=== PATIENT | female | born 1990 | race Caucasian/White ===

== ENCOUNTER 2017-10-08 10:16 | Observation (INO) ==
[2017-10-08] MEDS ORDERED: HYDROmorphone PF Inj 2 MG/ML Vial IV.PUSH ONE (12:02)
--- NOTE | 2017-10-08 12:06 | ED ---
HPI - - General Source: patient, family Mode of arrival: ambulatory Limitations: no limitations - History of Present Illness complaint: abdominal pain Onset (ago): hour(s) (4) Pain Consistency: constant, colicky Location: flank (left) Severity: severe Severity scale (1-10): 8 - General Chief complaint: OB/Uterine Contractions Stated complaint: Cramping pain left side 27 Wks Time seen by provider: 10/08/17 11:50 - History of Present Illness HPI narrative: Pt is a 26 yo at 27 weeks and 2 days. EDC 01/05/[address] Castillo. Pt deies any prior complication this . Pt states she woke up around 7:30 this morning with constant pain left back radiating to same flank. Pain is constant with intermittent exacerbations. She rates pain as 8/10. She denies any fevers. She has nausea and vomiting. She denies any dysuria. (Adam Reece) - Related Data Home Medications Medication Instructions Recorded Confirmed prenat.vits,drew,[id number] 1 tab PO DAILY 10/08/17 10/08/17 [ Vitamin] Allergies Allergy/AdvReac Type Severity Reaction Status Date / Time vancomycin Allergy Mild Itching Verified 10/08/17 10:45 Review of Systems All other systems reviewed negative except as stated in HPI PMFSH - - Past Medical History Medical history: Reports: other (obesity) Surgical history: Reports: appendectomy, cholecystectomy - Social History Smoking Status: Never smoker Physical Exam - General Limitations: no limitations General appearance: obese - Cardiovascular Cardiovascular exam: Present: regular rate, normal rhythm - Abdominal Exam Abdominal exam: Present: soft, other (left CVA tenderness ) - External exam: Present: normal external exam Bimanual exam: Present: other (cervix closed, long, posterior) - Back Exam Back exam: Present: CVA tenderness (L) Course Initial Documented Vital Signs Temperature 97.6 F 10/08/17 10:41 Respiratory Rate 10/08/17 10:41 Last Documented Vital Signs Temperature 97.6 F 10/08/17 10:41 Pulse Rate 80 10/08/17 10:53 Respiratory Rate 10/08/17 10:41 Blood Pressure 137/80 10/08/17 10:53 MDM - OB/Uterine Contractions
--- NOTE | 2017-10-08 12:49 | ED ---
History of Present Illness Primary Care Physician: KRAIG Chief Complaint: left back/flank pain./ 27 weeks . History of Present Illness: Patient is a 26 yo at 27 weeks and 2 days. care previously uncomplicated with Dr Castillo. EDC is 01/05/2018. Pt reports waking up this morning around 7:30 with pain. Pain constant, sharp over left back, with intermittent exacerbations. Denies any dysuria. No fevers or chills. She has had nausea and vomiting since onset. No vaginal bleeding or discharge. No prior h/o nephrolithiasis or pyelonephritis. Weeks Gestation:: 27 Para: 0 : 1 Review of Systems All other systems reviewed negative except as stated in HPI PMFSH - History History Provided By: Patient - Medical / Surgical Hx Neg / Unobtainable Medical Problems Denied: Yes - Tobacco History Smoking Status: Never smoker - Travel History Recent Travel in the [facility] Within the Last 8 Weeks: No Recent Travel Out of the Country Within the Last 8 Weeks: No Medications and Allergies Active Medications: Active Medications Lactated Ringer's (Lr 1000 Ml Inj) 1,000 mls @ 125 mls/hr IV.CONT .Q8H JENN Last Admin: 10/08/17 12:34 Dose: 125 mls/hr Sodium Chloride (Ns Flush) 2 ml IV.FLUSH BID JENN Sodium Chloride (Ns Flush) 2 ml IV.FLUSH PRN PRN PRN Reason: FLUSH AFTER USING IV ACCESS Allergies Allergy/AdvReac Type Severity Reaction Status Date / Time vancomycin Allergy Mild Itching Verified 10/08/17 10:45 Home Medications Medication Instructions Recorded Confirmed Type prenat.vits,drew,aqa-hbcq-seaeo 1 tab PO DAILY 10/08/17 10/08/17 History [ Vitamin] Exam Vital signs: Vital Signs 10/08/17 10:41 10/08/17 10:53 Temperature 97.6 F Pulse Rate 80 Respiratory Rate 18 Blood Pressure 137/80 Intake & Output 10/07/17 10/08/17 10/08/17 18:59 06:59 18:59 Weight 133.81 kg - Constitutional no acute distress - Routine HEENT Exam Head: Present: normocephalic - Routine Neck Exam Present: supple - Routine Respiratory Exam Present: CTA bilaterally - Routine Cardiovascular Exam Present: RRR - Routine Abdominal Exam Present: soft (gravid) - Routine Exam Patient deferred: perineal exam (cervix closed, long, posterior, no tenderness.) - Routine Extremities Exam Present: full ROM - Routine Back/Spine/Pelvis Exam Back/Spine: Present: CVA tenderness (LEFT) Results - Labs CBC & Chem 7: 10/08/17 12:32 09 12:32 Assessment and Plan - Diagnosis (1) 27 weeks gestation of Code(s): Z3A.27 - 27 weeks gestation of Status: Acute (2) CVA tenderness Code(s): M54.9 - Dorsalgia, unspecified Status: Acute Plan: Pt has left sided flank pain, pain is colicky Positive CVA tenderness, microscopic hematuria WCC is 13,000, no fevers. Suspicious for NEPHROLITHIASIS. Dilaudid 0.5mg ordered We will obtain renal ultrasound. Ultrasound does not show any hydronephrosis. However patient's symptoms are unchanged despite IV Dilaudid and IVF. I have discussed case with Dr Wong who agrees with plan to admit for pain medication and IVF. - Plan Admit for observation Dr hattie Castillo, Dr Ina Wong covering. Discharge Plan - Discharge Disposition Patient Disposition: 30 Still Patient - Discharge Condition Condition: Fair - Discharge Details Diagnosis: Nephrolithiasis, 27 weeks gestation of , Costovertebral angle tenderness - Physicians Team ED Provider: Adam Reece Primary Care Provider: David Poole V - Rxs /Orders / Referrals /Forms Prescriptions: No Action prenat.vits,drew,[id number] [ Vitamin] Tablet 1 tab PO DAILY - Discharge Instructions Print Language: Martiniquais
[2017-10-08 12:55] LABS: Hematocrit 35.6 % (35.0-46.0); Hemoglobin 11.8 gm/dL (11.6-15.3); Mean Corpuscular HGB Conc 33.2 % (32.0-36.0); Mean Corpuscular Hemoglobin 26.7 pg (27.0-34.0); Mean Corpuscular Volume 80.4 fL (80.0-100.0); Mean Platelet Volume 7.3 fL (7.0-11.0); Platelet Count 251 th/mm3 (150-450); Red Blood Count 4.43 mil/mm3 (4.00-5.30); Red Cell Distribution Width 15.5 % (11.6-17.2); White Blood Count 13.6 th/mm3 (4.0-11.0)
[2017-10-08 13:11] LABS: Bilirubin,Urine Negative (Negative); Clarity,Urine Hazy (Clear); Color,Urine Yellow (Yellw/Straw); Glucose,Urine (UA) Negative (Negative); Leukocyte Esterase,Urine Negative (Negative); Mucus,Urine Few /lpf (Occasional); Nitrite,Urine Negative (Negative); Specific Gravity,Urine 1.018 (1.002-1.035); Squamous Epithelial Cell,Urine 5 /hpf (0-5)
[2017-10-08 13:35] LABS: Anion Gap 11 meq/L (5-15); Blood Urea Nitrogen 5 mg/dL (7-18); Calcium 8.6 mg/dL (8.5-10.1); Carbon Dioxide 21.3 meq/L (21.0-32.0); Chloride 108 meq/L (98-107); Glomerular Filtration Rate Greater Than 89 mL/min (>89); Glucose,Random 96 mg/dL (74-106); Potassium 4.2 meq/L (3.5-5.1); Sodium 140 meq/L (136-145)
[2017-10-08] MEDS ORDERED: HYDROmorphone PF Inj 0.5 MG/0.5 ML Syringe IV.PUSH ONE (14:00)
--- NOTE | 2017-10-08 14:19 | US ---
EXAM DATE: 10/08/2017 2:14 PM EDT AGE/SEX: 26 years / Female INDICATIONS: Left flank pain. Hematuria. CLINICAL DATA: This is the patient's initial encounter. Patient reports that signs and symptoms have been present for 1 day and indicates a pain score of 10/10. MEDICAL/SURGICAL HISTORY: . Patient is 27 weeks . None. COMPARISON: [facility], CT ABDOMEN & PELVIS W CONTRAST, 09/23/2014. . MEASUREMENTS: Right Kidney:__11.2 x 5.7 x 4.7 cm Left Kidney:__12.6 x 5.6 x 6.9 cm FINDINGS: Right Kidney: Normal echotexture and cortical thickness. No mass or hydronephrosis. Left Kidney: Normal echotexture and cortical thickness. No mass or hydronephrosis. Bladder: Decompressed. Not well evaluated. Other: None. CONCLUSION: 1. Kidneys are normal. 2. Bladder not visualized. Electronically signed by: Ciro Isaacs MD 10/08/2017 2:17 PM EDT
[2017-10-08] MEDS ORDERED: Acetaminophen 325 MG Tablet PO PRN (14:21)
[2017-10-08] MEDS ORDERED: HYDROmorphone PF Inj 2 MG/ML Vial IV.PUSH PRN (14:50)
[2017-10-08] MEDS ORDERED: Morphine Inj 4 MG/ML Vial IV.SIG ONE (16:07)
[2017-10-08] MEDS ORDERED: Naloxone Inj 0.4 MG/ML Vial IV.PUSH PRN (16:07)
[2017-10-08] MEDS: Morphine Inj 30 MG/30 ML PCA.VIAL PCA PRN ×2 (16:55→22:00)
[2017-10-09] MEDS ORDERED: Morphine Inj 30 MG/30 ML PCA.VIAL PCA PRN (04:00)
[2017-10-09 06:42] LABS: Baso % (Auto) 0.2 % (0.0-2.0); Eos # (Auto) 0.1 th/mm3 (0.0-0.4); Hematocrit 31.4 % (35.0-46.0); Hemoglobin 10.5 gm/dL (11.6-15.3); Lymph # (Auto) 2.1 th/mm3 (1.0-4.8); Lymph % (Auto) 17.8 % (9.0-44.0); Mean Corpuscular HGB Conc 33.3 % (32.0-36.0); Mean Corpuscular Hemoglobin 26.8 pg (27.0-34.0); Mean Corpuscular Volume 80.4 fL (80.0-100.0); Mono % (Auto) 8.3 % (0.0-8.0); Neut # (Auto) 8.5 th/mm3 (1.8-7.7); Neut % (Auto) 72.7 % (16.0-70.0); Platelet Count 229 th/mm3 (150-450); Red Blood Count 3.91 mil/mm3 (4.00-5.30); White Blood Count 11.7 th/mm3 (4.0-11.0)
[2017-10-09 07:03] LABS: Albumin 2.3 g/dL (3.4-5.0); Anion Gap 10 meq/L (5-15); Aspartate Aminotransferase 13 U/L (15-37); Blood Urea Nitrogen 4 mg/dL (7-18); Calcium 8.1 mg/dL (8.5-10.1); Carbon Dioxide 25.4 meq/L (21.0-32.0); Chloride 109 meq/L (98-107); Glomerular Filtration Rate Greater Than 89 mL/min (>89); Glucose,Random 79 mg/dL (74-106); Potassium 3.8 meq/L (3.5-5.1); Sodium 144 meq/L (136-145)
[2017-10-09 07:06] LABS: Alanine Aminotransferase 32 U/L (10-53); Alkaline Phosphatase 97 U/L (45-117); Total Protein 6.2 g/dL (6.4-8.2)
[2017-10-09] MEDS ORDERED: Prenatal Vit/Ca/Iron/Folic Acid Tablet PO SCH (09:00)
--- NOTE | 2017-10-09 10:18 | P.OBANTE ---
Subjective Interval History: yesterday am pt with severe left flank pain. Since starting weights and measures inspector, she has been more comfortable. Able to sleep overnight. Has not used weights and measures inspector, just basal rate, dropped from 2 to 1 at 4am. Flank pain has resolved, now has llq pain that is mild. Sh edid note something in the strainer, rystals vs mucous, will send for eval Objective Vital Signs and I&O: Vital Signs 10/08/17 10:41 10/08/17 10:53 10/08/17 15:00 Temperature 97.6 F 98.5 F Pulse Rate 80 Respiratory Rate 18 Blood Pressure 137/80 10/08/17 17:13 10/08/17 17:20 10/08/17 17:35 Temperature Pulse Rate 76 82 Respiratory Rate 20 Blood Pressure 137/62 121/67 10/08/17 18:10 10/08/17 18:15 10/08/17 18:40 Temperature Pulse Rate 89 Respiratory Rate 20 20 Blood Pressure 124/66 10/08/17 19:25 10/08/17 22:05 10/08/17 23:36 Temperature Pulse Rate 74 70 Respiratory Rate 18 Blood Pressure 106/51 L 93/32 L 10/09/17 00:01 10/09/17 04:00 10/09/17 06:01 Temperature 97.9 F Pulse Rate 66 63 71 Respiratory Rate 18 Blood Pressure 102/54 L 111/51 L 104/43 L 10/09/17 07:00 10/09/17 07:45 10/09/17 07:55 Temperature 97.7 F Pulse Rate 71 68 Respiratory Rate 17 Blood Pressure 10/09/17 08:15 10/09/17 08:25 10/09/17 08:30 Temperature Pulse Rate 67 70 66 Respiratory Rate Blood Pressure 100/47 L 10/09/17 08:33 10/09/17 08:35 10/09/17 08:40 Temperature Pulse Rate 69 69 Respiratory Rate 18 Blood Pressure 10/09/17 08:45 10/09/17 09:00 10/09/17 09:10 Temperature Pulse Rate 67 84 84 Respiratory Rate Blood Pressure Intake & Output 10/08/17 10/09/17 10/09/17 18:59 06:59 18:59 Intake Total 1000 / 1000 Balance 1000 / 1000 Weight 133.81 kg Intake: IV 1000 / 1000 LR 1000 mL Inj 1,000 ML @ 125 1000 / 1000 mls/hr IV.CONT .Q8H [facility] Rx#: [id number] Lab and Micro Results: Laboratory Results - last 24 hr 10/08/17 10/08/17 10/08/17 10:54 12:32 12:32 WBC 13.6 H RBC 4.43 Hgb 11.8 Hct 35.6 MCV 80.4 MCH 26.7 L MCHC 33.2 RDW 15.5 Plt Count 251 MPV 7.3 Neut % (Auto) Lymph % (Auto) Bay % (Auto) Eos % (Auto) Baso % (Auto) Neut # (Auto) Lymph # (Auto) Bay # (Auto) Eos # (Auto) Baso # (Auto) WBC Differential Differential Comment Sodium 140 Potassium 4.2 Chloride 108 H Carbon Dioxide 21.3 Anion Gap 11 BUN 5 L Creatinine 0.54 Estimated GFR Greater than 89 Random Glucose 96 Calcium 8.6 Total Bilirubin AST ALT Alkaline Phosphatase Total Protein Albumin Urine Color Yellow Urine Clarity Hazy H Urine pH 6.0 Ur Specific [place] 1.018 Urine Protein 30 H Urine Glucose (UA) Negative Urine Ketones 20 Urine Occult Blood Large H Urine Nitrate Negative Urine Bilirubin Negative Urine Urobilinogen Less than 2 Ur Leukocyte Esterase Negative Urine RBC Urine WBC 1 Ur Squamous Epith Cells 5 Urine Mucus Few H Micro UA Comment Culture not ind Ur Microscopic Review Not Reportable Urine Culture Comments Culture not ind 10/09/17 10/09/17 06:25 06:25 WBC 11.7 H RBC 3.91 L Hgb 10.5 L Hct 31.4 L MCV 80.4 MCH 26.8 L MCHC 33.3 RDW 16.0 Plt Count 229 MPV 7.0 Neut % (Auto) 72.7 H Lymph % (Auto) 17.8 Bay % (Auto) 8.3 H Eos % (Auto) 1.0 Baso % (Auto) 0.2 Neut # (Auto) 8.5 H Lymph # (Auto) 2.1 Bay # (Auto) 1.0 H Eos # (Auto) 0.1 Baso # (Auto) 0.0 WBC Differential . Differential Comment Auto diff final Sodium 144 Potassium 3.8 Chloride 109 H Carbon Dioxide 25.4 Anion Gap 10 BUN 4 L Creatinine 0.52 Estimated GFR Greater than 89 Random Glucose 79 Calcium 8.1 L Total Bilirubin 0.3 AST 13 L ALT 32 Alkaline Phosphatase 97 Total Protein 6.2 L Albumin 2.3 L Urine Color Urine Clarity Urine pH Ur Specific [place] Urine Protein Urine Glucose (UA) Urine Ketones Urine Occult Blood Urine Nitrate Urine Bilirubin Urine Urobilinogen Ur Leukocyte Esterase Urine RBC Urine WBC Ur Squamous Epith Cells Urine Mucus Micro UA Comment Ur Microscopic Review Urine Culture Comments Physical Exam: GENERAL: Well-nourished, well-developed patient. CARDIOVASCULAR: Regular rate and rhythm without murmurs, gallops, or rubs. RESPIRATORY: Breath sounds equal bilaterally. No accessory muscle use. ABDOMEN/GI: Abdomen soft, non-tender. Fundus: [-] GENITOURINARY: External Genitalia:defer FHT's: Category: [140] Cat I EXTREMITIES: No cyanosis or edema, non-tender, without signs of DVT. Assessment and Plan - Plan 26 yo G1 with iup at 27 w3 d admitted for pyelonephritis No hydronephrosis or stone visualized on u/a. WBC count trending down. She has had one dose of Rocephin. UA with rbc, no culture indicated. Will stop weights and measures inspector basal rate and have patient just use weights and measures inspector as needed. Will stop weights and measures inspector this afternoon and transition to po percocet. Discharge Planning: this afternoon if pain controlled
[2017-10-09 15:18] VITALS: TEMP 97.8
[2017-10-09 16:04] VITALS: BP 130/54; PULSE 89; RESP 17
== END 2017-10-09 16:11 | disposition home or self-care (01) ==
LOC: HOBED 10:16 → H2E 10:16 → HOBED 14:45
PROVIDERS: ADMIT Obstetrics & Gynecology; ATTEND Obstetrics & Gynecology
DX: Z88.1 Allergy status to other antibiotic agents; O23.03 Infections of kidney in pregnancy, third trimester; N20.0 Calculus of kidney; O99.213 Obesity complicating pregnancy, third trimester; Z3A.27 27 weeks gestation of pregnancy; Z90.49 Acquired absence of other specified parts of digestive tract; Z68.42 Body mass index [BMI] 45.0-49.9, adult; O26.833 Pregnancy related renal disease, third trimester

== ENCOUNTER 2018-01-09 05:29 | Inpatient (IN) ==
--- NOTE | 2018-01-06 15:09 | MH ---
cc: Parish Castillo MD DATE OF ADMISSION: 01/09/2018 CHIEF COMPLAINT: The patient is being admitted for elective primary section. PATIENT'S HISTORY: The patient is a 27-year-old female, 1, para 0, estimated date of confinement 01/05/2018 based on first trimester assessment and ultrasound. The patient has been followed during this , developed gestational diabetes that is controlled with oral hypoglycemic agent using Metformin 500 mg daily. Assessment at the end of her third trimester; suspected macrosomia, transverse lie. In discussing options with the patient, she elected for primary section. OBSTETRICAL HISTORY: As stated above, the patient's group B strep status is negative. Blood type is A positive. Serologies are normal. Gonorrhea and chlamydia are negative. Hepatitis negative. RPR negative. The patient declined any genetic testing. The patient's is notable for morbid obesity, although she is able to maintain her weight just below 300 pounds. Initial weight was 298. Weight today was 298. The patient's recent blood sugars were normal; fastings are below 102, two hours were below 120-110. PAST MEDICAL HISTORY: The patient denies any systemic or chronic disease. ALLERGIES: THE PATIENT HAS NO KNOWN DRUG ALLERGIES. PAST SURGICAL HISTORY: Includes history of appendectomy and cholecystectomy, uncomplicated. PATIENT'S MEDICATIONS: Include: 1. Metformin 500 mg at bedtime. 2. vitamins daily. SOCIAL HISTORY: The patient denies use of alcohol, tobacco or illicit substances. She is . 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 FAMILY HISTORY: Noncontributory. PHYSICAL EXAMINATION: GENERAL: The patient is a morbidly obese female in no acute distress. VITAL SIGNS: Stable. Blood pressure 126/78, pulse, and respiratory rate are normal. heart tones in the 140s. HEENT: Shows no adenopathy or thyromegaly. NECK: Supple, full range of motion. LUNGS: Clear in all [place]. CARDIAC: Regular rate and rhythm without murmur, rub or gallop. ABDOMEN: Gravid, obese. Fundal height is over 42 cm; transverse lie appreciated on Stan's maneuver. Cervix is long, closed, posterior with no presenting part in the pelvis. EXTREMITIES: Symmetrical, full range of motion. She has 1+ pedal edema of the lower extremities and deep tendon reflexes are normal. No calf tenderness. NEUROLOGIC: Grossly intact, nonfocal. ASSESSMENT AND PLAN: The patient is 40 weeks and 1 day based on good dating criteria, history of morbid obesity, history of gestational diabetes controlled with metformin, history of macrosomia with malposition and transverse lie. PLAN OF MANAGEMENT: Patient is scheduled for elective primary section. The patient will stop her metformin. Glucose assessment will be made on the admission to labor and delivery by Accu-Cheks. The patient's group B strep status, again, is negative. Parish Castillo MD SJZhao/viola , 02:50 PM , 02:59 PM
[2018-01-09 06:13] LABS: Baso # (Auto) 0.1 th/mm3 (0.0-0.2); Baso % (Auto) 0.5 % (0.0-2.0); Eos # (Auto) 0.1 th/mm3 (0.0-0.4); Eos % (Auto) 0.7 % (0.0-4.0); Hematocrit 38.2 % (35.0-46.0); Hemoglobin 12.9 gm/dL (11.6-15.3); Lymph # (Auto) 1.8 th/mm3 (1.0-4.8); Mean Corpuscular HGB Conc 33.8 % (32.0-36.0); Mean Corpuscular Hemoglobin 27.4 pg (27.0-34.0); Mean Corpuscular Volume 81.1 fL (80.0-100.0); Mean Platelet Volume 7.6 fL (7.0-11.0); Neut # (Auto) 8.2 th/mm3 (1.8-7.7); Neut % (Auto) 73.8 % (16.0-70.0); Platelet Count 234 th/mm3 (150-450); Red Blood Count 4.71 mil/mm3 (4.00-5.30); White Blood Count 11.1 th/mm3 (4.0-11.0)
[2018-01-09] MEDS ORDERED: Citric Acid/Sodium Citrate Liq 30 ML UDC PO SCH (06:15)
[2018-01-09] MEDS ORDERED: ceFAZolin 2 GM IV; once IV.SIG SCH (06:15)
[2018-01-09 06:30] LABS: Amphetamine Screen,Urine Neg (Neg); Barbiturate Screen,Urine Neg (Neg); Cannabinoid Screen,Urine Neg (Neg); Cocaine Screen,Urine Neg (Neg)
[2018-01-09 06:35] LABS: Opiate Screen,Urine Neg (Neg)
[2018-01-09 06:41] LABS: Bacteria,Urine Rare /hpf; Bilirubin,Urine Negative (Negative); Clarity,Urine Hazy (Clear); Color,Urine Yellow (Yellw/Straw); Glucose,Urine (UA) Negative (Negative); Leukocyte Esterase,Urine Small (Negative); Mucus,Urine Few /lpf (Occasional); Nitrite,Urine Negative (Negative); Specific Gravity,Urine 1.019 (1.002-1.035); Squamous Epithelial Cell,Urine 10 /hpf (0-5)
[2018-01-09] MEDS ORDERED: Morphine Sulfate PF Inj 5 MG/10 ML Ampul ONE (07:04)
[2018-01-09] MEDS ORDERED: ceFAZolin 1 GM Premix Inj 1 GM/50 ML FROZ.PIGGY IV.SIG ONE (07:19)
[2018-01-09] MEDS ORDERED: ceFAZolin Inj 3,000 MG in Sodium Chlor 0.9% Inj 100 ML IV.SIG SCH (07:30)
[2018-01-09] MEDS ORDERED: Oxytocin 30 Units/500ml Premix 30 UNITS/500 ML BAG IV.SIG ONE (08:36)
[2018-01-09] MEDS ORDERED: Simethicone 80 MG Chew Tablet PO PRN (08:36)
--- NOTE | 2018-01-09 08:45 | P.OBDELI ---
Procedure Note Performed by: Parish Castillo MD Procedure: Primary Low Transverse Section (Unstable lie, marginal pelvis) Indication for Delivery: Maternal medical problems Informed Consent Obtained: For anesthesia, For procedure Confirmed Correct: Patient, Procedure, Site, Time-out taken Anesthesia: Spinal Medication Prior to Procedure: As documented in eMAR Monitoring During Procedure: Blood pressure monitoring, user experience developer, doppler, Pulse oximetry Urinary Catheter: Inserted using sterile technique, To dependent drainage Sterile Preparation: Duraprep, In usual fashion Position: Supine with wedge to right side - Operative Features Skin Incision: Pfannenstiel Uterine Incision: Low transverse w/knife / scissors Membranes Ruptured: Artificially Presentation: Occiput anterior Status of Infant: Viable Placenta Delivered: Intact Medications: Antibiotics, Oxytocin Estimated blood loss (mL): 700 Procedure Tolerated: Well Maternal Condition: Stable Baby Condition: Stable - Infant Infant: Female Infant Delivery Date: 01/09/18 Weight: 3545 kg score (1 min): 8 score (5 min): 9
[2018-01-09] MEDS ORDERED: Oxytocin 30 Units/500ml Premix 30 UNITS/500 ML BAG ONE (09:21)
[2018-01-09] MEDS ORDERED: Ketorolac Inj 30 MG/ML (IVP) Vial ONE (09:30)
--- NOTE | 2018-01-09 09:34 | MP ---
cc: Parish Castillo MD DATE OF OPERATION: 01/09/2018 DATE OF PROCEDURE: 01/09/2018. PREOPERATIVE DIAGNOSES: Term intrauterine gestation. History of gestational diabetes, controlled with metformin, history of morbid obesity, history of unstable lie with marginal maternal pelvimetry. PROCEDURE: Primary low transverse section, delivery of viable female infant. POSTOPERATIVE DIAGNOSIS: Primary low transverse section, delivery of viable female infant. 's were 8 at 1 minute and 9 at 5. Baby weighed 3545 grams. ANESTHESIA: Spinal. ESTIMATED BLOOD LOSS: 700 mL. DRAINS: Erickson to gravity. OPERATIVE FINDINGS: Stated above. Normal uterus, adnexa. Clear fluid was noted. ANTIBIOTIC: The patient received 3 grams of Ancef prophylactically. PROCEDURE DESCRIPTION: The patient was taken to the operating room in stable condition, underwent spinal anesthetic without complication. She was prepped and draped. Erickson was inserted by sterile technique. Sequentials were placed on the lower extremities for VTE prophylaxis. Timeout was conducted, agreed by all present in the room. The patient was assessed for pain level. The patient had excellent pain control and was alert and oriented throughout the entire procedure. Pfannenstiel incision was utilized. It was carried through the skin down through the subcutaneous layer to the fascia, identifying the fascia in the midline and extending it sharply laterally, dissecting the fascia away from the rectus muscle and then following the peritoneum in the midline, opening the peritoneum sharply and then developing a bladder flap. The bladder blade was placed over the bladder flap. Transverse incision was made in the lower uterine segment with clear fluid. The incision was extended. The vertex was delivered by the aid of a vacuum extractor by one simple pull. The was delivered in total. Delayed cord clamping was conducted by 45 seconds. Cord was doubly clamped and cut and then the was taken to [place]so[place] by the nurse present. Cord sample was obtained for blood typing. Placenta was then removed intact and sent as a donation. The uterus was explored. There was no retained tissue. The uterus was then closed with a double layer, first was a running locking suture of 0 Monocryl, followed by a second imbricating suture of 0 Monocryl. The pelvis was irrigated, there was no active bleeding. All free blood and clot was removed. Full count was made and correct and the peritoneum was then closed with a running suture of 2-0 Monocryl, followed by reapproximating the lower rectus muscle with interrupted mattress suture of 2-0 Monocryl. The fascia was then closed with 0 Vicryl in a simple running fashion with good result. The subcutaneous layer was examined, any active bleeding was cauterized and the space was reapproximated with a running suture of 2-0 Monocryl. [place] were then used to reapproximate the skin edge. Dressing was applied. The final count was correct. The patient was stable. was doing well in the recovery room with the father. MD SOHA Jalloh/lan , 08:53 AM , 09:00 AM
[2018-01-09] MEDS ORDERED: Naloxone Inj 0.4 MG/ML Vial IV.PUSH PRN (09:52)
[2018-01-09] MEDS ORDERED: Oxytocin 30 Units/500ml Premix 30 UNITS/500 ML BAG IV.SIG PRN (13:36)
[2018-01-09] MEDS: Famotidine 20 MG Tablet PO SCH (21:33)
[2018-01-10 05:59] LABS: Baso # (Auto) 0.1 th/mm3 (0.0-0.2); Baso % (Auto) 0.5 % (0.0-2.0); Eos % (Auto) 0.2 % (0.0-4.0); Hematocrit 34.3 % (35.0-46.0); Hemoglobin 11.1 gm/dL (11.6-15.3); Lymph # (Auto) 2.6 th/mm3 (1.0-4.8); Lymph % (Auto) 15.8 % (9.0-44.0); Mean Corpuscular HGB Conc 32.4 % (32.0-36.0); Mean Corpuscular Hemoglobin 26.6 pg (27.0-34.0); Mean Corpuscular Volume 82.1 fL (80.0-100.0); Mean Platelet Volume 7.6 fL (7.0-11.0); Mono # (Auto) 1.2 th/mm3 (0.0-0.9); Mono % (Auto) 7.5 % (0.0-8.0); Neut # (Auto) 12.3 th/mm3 (1.8-7.7); Platelet Count 204 th/mm3 (150-450); Red Blood Count 4.18 mil/mm3 (4.00-5.30); Red Cell Distribution Width 15.9 % (11.6-17.2); White Blood Count 16.2 th/mm3 (4.0-11.0)
--- NOTE | 2018-01-10 07:34 | P.PNOB ---
Subjective Post op day: 1 Interval history: doing well, pain controlled, ambulating, voiding, VB < menses, TPO no n/v Objective Vital Signs/I&O: Vital Signs 01/09/18 08:43 01/09/18 08:56 01/09/18 09:04 Temperature 97.7 F Pulse Rate 68 62 59 L Respiratory Rate 19 17 Blood Pressure 112/52 L 119/61 110/53 L 01/09/18 09:16 01/09/18 09:19 01/09/18 09:26 Temperature 97.7 F Pulse Rate 62 53 L Respiratory Rate 18 18 Blood Pressure 103/53 L 01/09/18 09:31 01/09/18 10:10 01/09/18 15:00 Temperature 97.9 F 98.5 F Pulse Rate 67 62 Respiratory Rate 18 18 Blood Pressure 106/56 L 97/56 L 108/62 01/09/18 17:45 01/09/18 19:55 01/10/18 00:00 Temperature 98.1 F 98.2 F 98.3 F Pulse Rate 62 60 76 Respiratory Rate 18 18 18 Blood Pressure 106/70 94/63 L 102/56 L 01/10/18 04:00 Temperature 98.2 F Pulse Rate 69 Respiratory Rate 18 Blood Pressure 104/56 L Intake & Output 01/09/18 01/10/18 01/10/18 18:59 06:59 18:59 Weight 135 kg Other: Weight On Admission 135 kg Result Diagrams: 01/10/18 05:38 Objective Remarks: GENERAL: Well-nourished, well-developed patient. CARDIOVASCULAR: Regular rate and rhythm without murmurs, gallops, or rubs. RESPIRATORY: Breath sounds equal bilaterally. No accessory muscle use. ABDOMEN/GI: Abdomen soft, non-tender, bowel sounds present. bandage Clean, dry and intact. Fundus: Firm, non-tender at umbilicus. GENITOURINARY: Light to moderate bleeding. EXTREMITIES: No cyanosis or edema, non-tender, without signs of DVT. Medications and IVs: Active Medications Citric Acid/Sodium Citrate (Sodium Citrate/Citric Acid Liq) 30 ml PO CEMENT OR CONCRETE FINISHING SUPERVISOR JENN Stop: 01/13/18 06:14 Last Admin: 01/09/18 07:10 Dose: 30 ml Diphenhydramine HCl (Benadryl Inj) 25 mg IV.PUSH Q6H PRN PRN Reason: MILD TO MODERATE ITCHING Stop: 01/10/18 09:51 Last Admin: 01/09/18 10:38 Dose: 25 mg Diphenhydramine HCl (Benadryl) 50 mg PO Q6H PRN PRN Reason: MILD TO MODERATE ITCHING Stop: 01/10/18 09:51 Diphtheria/Pertussis/Tetanus Vacc (Boostrix Vaccine Inj) 0.5 ml IM .ONCE ONE Stop: 01/10/18 16:01 Famotidine (Pepcid) 20 mg PO BID [facility] Last Admin: 01/09/18 21:33 Dose: 20 mg Lactated Ringer's (Lr 1000 Ml Inj) 1,000 mls @ 100 mls/hr IV.CONT .Q10H [facility] Stop: 01/10/18 09:35 Oxytocin (Pitocin 30 Units/Ns 500 Ml Premix) 30 units in 500 mls @ 100 mls/hr IV.SIG UNSCH PRN PRN Reason: Heavy bleeding Ibuprofen (Motrin) 800 mg PO Q8H PRN PRN Reason: cramping Last Admin: 01/10/18 05:45 Dose: 800 mg Ketorolac Tromethamine (Toradol Inj) 30 mg IM Q6H PRN PRN Reason: SEE LABEL COMMENTS Last Admin: 01/09/18 09:31 Dose: 30 mg Measles/Mumps/Rubella Vaccine Live (M-M-R Ii Vaccine Inj) 0.5 ml SQ .ONCE ONE Stop: 01/10/18 16:01 Miscellaneous Information (Mis Nursing Information) 1 each OTHER UNSCH PRN PRN Reason: SEE LABEL COMMENTS Stop: 01/10/18 09:51 Miscellaneous Information ([facility] Nursing Information) 1 each OTHER UNSCH PRN PRN Reason: SEE LABEL COMMENTS Stop: 01/10/18 09:51 Naloxone HCl (Narcan Inj) 0.4 mg IV.PUSH UNSCH PRN PRN Reason: SEE LABEL COMMENTS Stop: 01/10/18 09:51 Ondansetron HCl (Zofran Inj) 4 mg IV.PUSH Q6H PRN PRN Reason: NAUSEA OR VOMITING Oxycodone/Acetaminophen (Percocet 5/325 Mg) 1 tab PO Q4H PRN PRN Reason: PAIN SCALE 3 TO 5 Oxycodone/Acetaminophen (Percocet 5/325 Mg) 2 tab PO Q4H PRN PRN Reason: PAIN SCALE 6 TO 10 Simethicone (Mylicon Chew) 80 mg PO QID PRN PRN Reason: FLATULENCE Sodium Chloride (Ns Flush) 2 ml IV.FLUSH BID JENN Last Admin: 01/09/18 21:32 Dose: Not Given Sodium Chloride (Ns Flush) 2 ml IV.FLUSH PRN PRN PRN Reason: FLUSH AFTER USING IV ACCESS Assessment and Plan - Plan 27 yo s/p scheduled primary LTCS at 40w due to malpositions and suspected macrosomia 1. POD #1: AF, VSS, AM Hb noted and appropriate, counting routine and post op care, discussed precautions, expectations and follow up. anticipate d/c home in next 48hrs - female 2. Reflex urine ctx: awaiting final ctx result 3. GDM A2: d/c metformin, fu 2hr GTT as outpatient.
[2018-01-10] MEDS: Famotidine 20 MG Tablet PO SCH ×2 (10:42→21:21)
[2018-01-10] MEDS ORDERED: Measles/Mumps/Rubella Vaccine Inj 0.5 ML Vial SQ ONE (16:00)
[2018-01-10] MEDS ORDERED: Diphtheria/Tetanus/Pertussis Vaccine Inj 0.5 ML Syringe IM ONE (16:00)
[2018-01-11] MEDS: Famotidine 20 MG Tablet PO SCH ×2 (08:46→20:21)
--- NOTE | 2018-01-11 11:33 | P.PNOB ---
Subjective Post op day: 2 Interval history: doing well nursing no issues Objective Vital Signs/I&O: Vital Signs 01/10/18 20:00 01/11/18 09:00 Temperature 98.0 F 95.0 F L Pulse Rate 76 69 Respiratory Rate 20 20 Blood Pressure 114/64 111/68 Result Diagrams: 01/10/18 05:38 Objective Remarks: GENERAL: Well-nourished, well-developed patient. CARDIOVASCULAR: Regular rate and rhythm without murmurs, gallops, or rubs. RESPIRATORY: Breath sounds equal bilaterally. No accessory muscle use. ABDOMEN/GI: Abdomen soft, non-tender, bowel sounds present. Incision: Clean, dry and intact. [place]umbling [place] in place Fundus: Firm, non-tender at umbilicus. GENITOURINARY: Light to moderate bleeding. EXTREMITIES: No cyanosis or edema, non-tender, without signs of DVT. Medications and IVs: Active Medications Citric Acid/Sodium Citrate (Sodium Citrate/Citric Acid Liq) 30 ml PO [employer]ACH[employer] [facility] Stop: 01/13/18 06:14 Last Admin: 01/09/18 07:10 Dose: 30 ml Famotidine (Pepcid) 20 mg PO BID [facility] Last Admin: 01/11/18 08:46 Dose: 20 mg Oxytocin (Pitocin 30 Units/Ns 500 Ml Premix) 30 units in 500 mls @ 100 mls/hr IV.SIG UNSCH PRN PRN Reason: Heavy bleeding Ibuprofen (Motrin) 800 mg PO Q8H PRN PRN Reason: cramping Last Admin: 01/11/18 08:45 Dose: 800 mg Ketorolac Tromethamine (Toradol Inj) 30 mg IM Q6H PRN PRN Reason: SEE LABEL COMMENTS Last Admin: 01/09/18 09:31 Dose: 30 mg Ondansetron HCl (Zofran Inj) 4 mg IV.PUSH Q6H PRN PRN Reason: NAUSEA OR VOMITING Oxycodone/Acetaminophen (Percocet 5/325 Mg) 1 tab PO Q4H PRN PRN Reason: PAIN SCALE 3 TO 5 Last Admin: 01/11/18 08:45 Dose: 1 tab Oxycodone/Acetaminophen (Percocet 5/325 Mg) 2 tab PO Q4H PRN PRN Reason: PAIN SCALE 6 TO 10 Simethicone (Mylicon Chew) 80 mg PO QID PRN PRN Reason: FLATULENCE Sodium Chloride (Ns Flush) 2 ml IV.FLUSH BID JENN Last Admin: 01/10/18 21:21 Dose: 2 ml Sodium Chloride (Ns Flush) 2 ml IV.FLUSH PRN PRN PRN Reason: FLUSH AFTER USING IV ACCESS Assessment and Plan - Plan 27 yo s/p scheduled primary LTCS at 40w due to malpositions and suspected macrosomia 1. POD #1: AF, VSS, AM Hb noted and appropriate, counting routine and post op care, discussed precautions, expectations and follow up. anticipate d/c home in next 48hrs - female 2. Reflex urine ctx: awaiting final ctx result 3. GDM A2: d/c metformin, fu 2hr GTT as outpatient. Agree with above counseled on post risks and expectations home in am after tonia removed ()
--- NOTE | 2018-01-12 08:14 | P.PNOB ---
Subjective Post op day: 3 Interval history: doing well. siobhan po, + bm, voiding w/o difficulty. pain well controlled Objective Vital Signs/I&O: Vital Signs 01/11/18 09:00 01/11/18 20:00 Temperature 95.0 F L 97.9 F Pulse Rate 69 74 Respiratory Rate 20 18 Blood Pressure 111/68 122/69 Result Diagrams: 01/10/18 05:38 Objective Remarks: GENERAL: Well-nourished, well-developed patient. CARDIOVASCULAR: Regular rate and rhythm without murmurs, gallops, or rubs. RESPIRATORY: Breath sounds equal bilaterally. No accessory muscle use. ABDOMEN/GI: Abdomen soft, non-tender, bowel sounds present. Incision: Clean, dry and intact.[place]ia Fundus: Firm, non-tender at umbilicus. GENITOURINARY: Light to moderate bleeding. EXTREMITIES: No cyanosis or edema, non-tender, without signs of DVT. 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 [facility] Stop: 01/13/18 06:14 Last Admin: 01/09/18 07:10 Dose: 30 ml Famotidine (Pepcid) 20 mg PO BID [facility] Last Admin: 01/11/18 20:21 Dose: 20 mg Oxytocin (Pitocin 30 Units/Ns 500 Ml Premix) 30 units in 500 mls @ 100 mls/hr IV.SIG UNSCH PRN PRN Reason: Heavy bleeding Ibuprofen (Motrin) 800 mg PO Q8H PRN PRN Reason: cramping Last Admin: 01/12/18 05:40 Dose: 800 mg Ketorolac Tromethamine (Toradol Inj) 30 mg IM Q6H PRN PRN Reason: SEE LABEL COMMENTS Last Admin: 01/09/18 09:31 Dose: 30 mg Ondansetron HCl (Zofran Inj) 4 mg IV.PUSH Q6H PRN PRN Reason: NAUSEA OR VOMITING Oxycodone/Acetaminophen (Percocet 5/325 Mg) 1 tab PO Q4H PRN PRN Reason: PAIN SCALE 3 TO 5 Last Admin: 01/12/18 05:40 Dose: 1 tab Oxycodone/Acetaminophen (Percocet 5/325 Mg) 2 tab PO Q4H PRN PRN Reason: PAIN SCALE 6 TO 10 Simethicone (Mylicon Chew) 80 mg PO QID PRN PRN Reason: FLATULENCE Sodium Chloride (Ns Flush) 2 ml IV.FLUSH BID JENN Last Admin: 01/11/18 20:22 Dose: Not Given Sodium Chloride (Ns Flush) 2 ml IV.FLUSH PRN PRN PRN Reason: FLUSH AFTER USING IV ACCESS Assessment and Plan - Plan 27 yo s/p scheduled primary LTCS at 40w due to malpositions and suspected macrosomia 1. POD #3: AF, VSS, AM Hb noted and appropriate, counting routine and post op care, discussed precautions, expectations and follow up. anticipate d/c home today - female 2. Reflex urine ctx: mixed 3. GDM A2: d/c metformin, fu 2hr GTT as outpatient. )
[2018-01-12] MEDS: Famotidine 20 MG Tablet PO SCH (08:17)
[2018-01-12 08:23] VITALS: BP 115/71; PULSE 58; RESP 20; TEMP 98.1
== END 2018-01-12 13:58 | disposition home or self-care (01) ==
LOC: H2E 05:29 → H1EA 09:57
PROVIDERS: ADMIT Obstetrics & Gynecology; ATTEND Obstetrics & Gynecology